=== PATIENT | female | born 1995 ===

== ENCOUNTER 2018-02-12 09:11 | Outpatient (CLI) | payer OTHER | END 2018-02-12 09:30 | disposition home or self-care (01) | LOC: LAB 09:11 | DX: Z34.83 Encounter for supervision of other normal pregnancy, third trimester (principal) ==

== ENCOUNTER 2018-02-18 20:50 | Inpatient (IN) | payer OTHER ==
[~2018-02-18] VITALS: Ht 172.7 cm; Wt 78.0 kg
[2018-02-18] MEDS ORDERED: PRENATABS RX T1 EACH PO (21:46)
[2018-02-18] MEDS ORDERED: IRON18 MG PO (21:46)
== END 2018-02-21 14:47 | disposition home or self-care (01) | DRG 807 ==
LOC: LDR 20:50 → OB/GYN 02-19 14:47
PROVIDERS: ADMIT Specialist
PROC: 10E0XZZ Delivery of Products of Conception, External Approach (ICD-10-PCS; principal; 2018-02-18)
PROC: 0UQGXZZ Repair Vagina, External Approach (ICD-10-PCS; 2018-02-18)
PROC: 10907ZC Drainage of Amniotic Fluid, Therapeutic from Products of Conception, Via Natural or Artificial Opening (ICD-10-PCS; 2018-02-18)
PROC: 3E033VJ Introduction of Other Hormone into Peripheral Vein, Percutaneous Approach (ICD-10-PCS; 2018-02-18)
PROC: 4A1HXCZ Monitoring of Products of Conception, Cardiac Rate, External Approach (ICD-10-PCS; 2018-02-18)
DX: O71.4 Obstetric high vaginal laceration alone (principal); Z37.0 Single live birth; Z3A.39 39 weeks gestation of pregnancy